=== PATIENT | female | born 1955 ===

== ENCOUNTER → 2025-07-26 12:52 | Outpatient (BNVA) | payer MEDICARE, BC, SELFPAY | PROVIDERS: PCP Family Medicine; Referring Provider Family Medicine; Visit Provider Internal Medicine Pulmonary Disease | DX: R05.9 Cough, unspecified (principal); R06.00 Dyspnea, unspecified | CPT/HCPCS: 36415; 99205 ==

== ENCOUNTER 2025-07-26 15:10 | Outpatient (REF) | payer MEDICARE, SELFPAY ==
[2025-07-26 16:09] LABS: Abs Immature Grans 0.03 10^3/uL (0.0-0.06); HCT 42.9 % (36.0-46.0); HGB 14.0 g/dL (11.2-15.7); Immature Grans % 0.4 %; MCH 29.9 pg (27.0-33.0); MCHC 32.6 % (32.0-36.0); MCV 92 fL (80-95); MPV 12.5 fL (8.0-11.0); Platelet Count 221 10^3/uL (130-400); RBC 4.69 10^6/uL (3.93-5.22); RDW 12.8 % (11.7-14.6); RDW-SD 42.6 fL; WBC 7.23 10^3/uL (4.4-10.8)
== END 2025-07-26 15:11 | disposition home or self-care (01) ==
LOC: LBN 15:10
PROVIDERS: PCP Family Medicine; Visit Provider Internal Medicine Pulmonary Disease
DX: R05.9 Cough, unspecified (principal)
CPT/HCPCS: 85025

== ENCOUNTER → 2025-08-17 14:33 | Outpatient (BNVA) | payer MEDICARE, BC, SELFPAY | PROVIDERS: PCP Family Medicine; Referring Provider Family Medicine; Visit Provider Physician Assistant Surgical | DX: J45.909 Unspecified asthma, uncomplicated (principal); R06.09 Other forms of dyspnea; R05.9 Cough, unspecified | CPT/HCPCS: 99214 ==

== ENCOUNTER → 2025-09-21 15:10 | Outpatient (BNVA) | payer MEDICARE, BC, SELFPAY | PROVIDERS: PCP Family Medicine; Referring Provider Family Medicine; Visit Provider Physician Assistant Surgical | DX: J45.909 Unspecified asthma, uncomplicated (principal); R06.00 Dyspnea, unspecified; R05.9 Cough, unspecified | CPT/HCPCS: 99214 ==